=== PATIENT | female | born 1980 | race African-American/Black ===

== ENCOUNTER 2021-06-14 17:50 | Emergency (ER) | payer OTHER ==
[~2021-06-14] VITALS: Ht 165.1 cm; Wt 68.0 kg
[~2021-06-14 17:50] MED LIST: BENADRYL25 MG PO; BENTYL 20 MG TA20 M1 PO; CIPROFLOXACIN500 M1 PO; CLEOCIN HCL300 MG PO; LOPERAMIDE 2 MG2 M1 PO; MEDROLDOSEPACK PO; NOHOMEMEDICATIONS; NORCO 5-325 TA1 EACH PO; POTASSIUM20 PO; PRENATAL; PYRIDIUM200 MG PO; ZOFRAN ODT4 MG PO
[2021-06-14 18:44] LABS: URINE BILIRUBIN NEGATIVE (Negative); URINE BLOOD 2+ (Negative); URINE CLARITY CLEAR; URINE COLOR YELLOW; URINE GLUCOSE-RANDOM* NEGATIVE (Negative); URINE KETONES 1+ (Negative); URINE LEUKOCYTES-REFLEX NEGATIVE (Negative); URINE NITRITE-REFLEX NEGATIVE (Negative); URINE PROTEIN (DIPSTICK) NEGATIVE (Negative); URINE SPECIFIC GRAVITY 1.025 (1.005-1.035); URINE UROBILINOGEN 0.2 E.U./dl (0.2-1.0)
[2021-06-14 19:02] LABS: BACTERIA-REFLEX None Seen /HPF (None Seen); CRYSTALS None Seen /LPF (None Seen); SQUAMOUS 0-3 Few /LPF (0-3); URINE RBC 1-2 Rare /HPF (NONE SEEN); URINE WBC-REFLEX None Seen /HPF (0-5)
[2021-06-14 20:46] LABS: HEMOGLOBIN 12.9 gm/dL (12.0-15.0); WBC 6.2 thou/uL (4.0-11.0)
[2021-06-14 20:48] LABS: ABSOLUTE NEUTROPHILS 3.5 thou/uL (1.4-8.2); BASOPHILS 0.9 % (0.0-2.0); HEMATOCRIT 38.2 % (37.0-47.0); LYMPHOCYTES 37.2 % (24.0-44.0); MCHC 33.7 g/dL (28.0-37.0); MONOCYTES 5.1 % (1.0-8.0); PLATELET COUNT 270 thou/uL (150-400); POLYS 55.8 % (36.0-66.0); RBC 3.89 mil/uL (4.20-5.00); RDW 13.4 % (10.5-14.5)
[2021-06-14 22:55] VITALS: BP 126/59
== END 2021-06-14 22:57 | disposition home or self-care (01) ==
LOC: ER 17:50
PROVIDERS: Nurse Practitioner
DX: O20.0 Threatened abortion (principal); Z3A.01 Less than 8 weeks gestation of pregnancy; Z79.891 Long term (current) use of opiate analgesic; Z79.899 Other long term (current) drug therapy; Z88.0 Allergy status to penicillin